=== PATIENT | female | born 1940 | race Caucasian/White ===

== ENCOUNTER 2018-04-25 17:20 | Inpatient (IN) | payer OTHER, MEDICAID ==
[~2018-04-25] VITALS: Ht 160 cm; Wt 77.6 kg
[2018-04-25] MEDS ORDERED: LISI-607 PO (17:48)
[2018-04-25] MEDS ORDERED: IPRA0.2S48 IH (17:48)
[2018-04-25] MEDS ORDERED: HYDR-3326 PO (17:48)
[2018-04-25] MEDS ORDERED: METO10TA3 PO (17:48)
[2018-04-25] MEDS ORDERED: FLUT1BLS IH (17:48)
[2018-04-25] MEDS ORDERED: ALBU8.5H8 INH (17:48)
[2018-04-25] MEDS ORDERED: METO-358 PO (17:48)
[2018-04-25] MEDS ORDERED: EZET10TA27 PO (17:48)
[2018-04-25] MEDS ORDERED: FURO-151 PO (17:48)
[2018-04-25] MEDS ORDERED: PANT40TA4 PO (17:48)
[2018-04-25] MEDS ORDERED: APIX5TAB PO (17:48)
[2018-04-25] MEDS ORDERED: POTA20LI4 PO (17:48)
[2018-04-25] MEDS ORDERED: POLY250017 TOP (17:48)
[2018-04-25] MEDS ORDERED: CLOP75TA33 PO (17:48)
[2018-04-25] MEDS ORDERED: TIOT18CA3 IH (17:48)
[2018-04-25] MEDS ORDERED: DICL100G26 TOP (17:48)
--- NOTE | 2018-04-25 17:48 | NUR ---
PT IS IN ROOM #1A. DR MENDES EVALUATED THE PT.
[2018-04-25] MEDS ORDERED: IPRATROPIUM BROMIDE 0.5 MG/2.5 ML NEBU IH SCH (18:45)
[2018-04-25] MEDS ORDERED: HYDROCODONE/APAP 5-325MG TABLET PO PRN (18:45)
[2018-04-25] MEDS ORDERED: ALBUTEROL SULFATE 8 GM HFA.AER.AD INH SCH (18:45)
[2018-04-25] MEDS ORDERED: LORAZEPAM 0.5 MG TABLET PO ONE (18:45)
[2018-04-25] MEDS ORDERED: LORAZEPAM 0.5 MG TABLET ONE (18:50)
--- NOTE | 2018-04-25 18:55 | NUR ---
REPORT GIVEN TO LIVESTOCK NUTRITIONISTPSYCHOLOGY TEACHER.
[2018-04-25] MEDS ORDERED: ONDANSETRON 4 MG/2 ML VIAL IV PRN (19:00)
[2018-04-25] MEDS ORDERED: ACETAMINOPHEN 325 MG TABLET PO PRN (19:00)
[2018-04-25] MEDS ORDERED: MISCELLANEOUS MED XX ONE (19:00)
[2018-04-25] MEDS ORDERED: Z GUARD REMEDY PASTE 57 GM TUBE TOP PRN (19:00)
[2018-04-25] MEDS ORDERED: MAGNESIUM HYDROXIDE 30 ML LIQUID UDC PO PRN (19:00)
--- NOTE | 2018-04-25 19:15 | NUR ---
REPORT RECEIVED FROM [facility] NURS[facility]
[2018-04-25] MEDS ORDERED: ALBUTEROL SULFATE 2.5 MG/3 ML NEBU NEB ONE (19:45)
[2018-04-25] MEDS ORDERED: IPRATROPIUM BROMIDE 0.5 MG/2.5 ML NEBU NEB ONE (19:45)
--- NOTE | 2018-04-25 19:46 | NUR ---
RT AT BEDSIDE FOR BREATHING TX
[2018-04-25] MEDS ORDERED: IPRATROPIUM BROMIDE 0.5 MG/2.5 ML NEBU ONE (19:50)
[2018-04-25] MEDS ORDERED: ALBUTEROL SULFATE 2.5 MG/3 ML NEBU ONE (19:50)
--- NOTE | 2018-04-25 20:40 | NUR ---
PT EXPERIENCES NEW ONSET OF CHEST PAIN. MADE AWARE.
[2018-04-25] MEDS ORDERED: NITROGLYCERIN 0.4 MG/TAB BOTTLE SL ONE ×3 (20:48→22:00)
[2018-04-25] MEDS ORDERED: DICLOFENAC SODIUM TOP SCH (21:00)
[2018-04-25] MEDS ORDERED: ONDANSETRON ODT 4 MG TAB.RAPDIS ONE (21:10)
[2018-04-25] MEDS ORDERED: MORPHINE SULFATE 2 MG/1 ML DISP.SYRIN ONE (21:11)
[2018-04-25 21:13] LABS: BASOPHILS % (AUTO) 0.6 % (0.0-2.0); EOSINOPHILS # (AUTO) 0.3 K/uL (0.0-0.7); EOSINOPHILS % (AUTO) 3.3 % (0.0-7.0); HEMATOCRIT 35.2 % (31.2-41.9); HEMOGLOBIN 11.6 g/dL (10.9-14.3); LYMPHOCYTES # (AUTO) 2.8 K/uL (20.0-40.0); MEAN CORPUSCULAR HGB CONC 33 g/dL (32.3-35.6); MEAN CORPUSCULAR VOLUME 90.7 fL (75.5-95.3); MONOCYTES # (AUTO) 0.8 K/uL (2.0-10.0); MONOCYTES % (AUTO) 10.3 % (0.0-11.0); NEUTROPHILS % (AUTO) 50.8 % (38.5-71.5); PLATELET COUNT (AUTO) 247 K/uL (179-408); RED BLOOD CELL COUNT(AUTO) 3.88 MIL/uL (3.63-4.92); WHITE BLOOD COUNT (AUTO) 7.9 K/uL (3.8-11.8)
[2018-04-25] MEDS ORDERED: MORPHINE SULFATE 2 MG/1 ML DISP.SYRIN IV ONE ×2 (21:15→21:45)
[2018-04-25] MEDS ORDERED: ONDANSETRON 4 MG/2 ML VIAL IV ONE (21:15)
[2018-04-25 21:21] LABS: CARBON DIOXIDE 29 mmol/L (21-32); CHLORIDE 99 mmol/L (98-107); CREATININE 1.2 mg/dL (0.6-1.3); GLUCOSE 142 mg/dL (74-106); UREA NITROGEN, BLOOD 20 mg/dL (7-18)
[2018-04-25 21:34] LABS: ALANINE AMINOTRANSFERASE 20 U/L (14-59); ALKALINE PHOSPHATASE 51 U/L (50-136); ASPARTATE AMINOTRANSFERASE 13 U/L (15-37); BILIRUBIN,TOTAL 0.7 mg/dL (0.2-1.0); TOTAL PROTEIN, SERUM 6.2 g/dL (6.4-8.2)
--- NOTE | 2018-04-25 21:55 | NUR ---
REPORT GIVEN TO TELEMETRY NURSE, ALESSANDRO
[2018-04-25] MEDS ORDERED: MORPHINE SULFATE 2 MG/1 ML DISP.SYRIN IV PRN (22:00)
[2018-04-25] MEDS ORDERED: ALBUTEROL SULFATE 2.5 MG/3 ML NEBU NEB PRN (22:15)
[2018-04-25] MEDS ORDERED: IPRATROPIUM BROMIDE 0.5 MG/2.5 ML NEBU NEB PRN (22:15)
[2018-04-25] MEDS ORDERED: CLONIDINE HCL 0.1 MG TABLET PO PRN (22:15)
--- NOTE | 2018-04-25 22:50 | NUR ---
Pt. admitted to TELEMETRY, under care of BELIA WHELAN Belongs List completed
[2018-04-26] VITALS: BP 107/57
--- NOTE | 2018-04-26 | NUR ---
PER NIGHT PHARMACY TO VERIFY PATIENTS ELIQUIS IF SHE TOOK THEM TODAY AND IF SHE HAVE THEM WITH HER PER PATIENT SHE TOOK ELIQUIS THIS AM AND SHE DONT HAVE MEDICATION WITH HER .PATIENT IS PSYCH ON HOLD 4770. SPOKED WITH BELIA GUEVARA AND PER CEMENT PRODUCTION PLANT OPERATOR TO VERIFY WITH IN HOUSE PHARMACY THIS AM FOR POSSIBLE SUBSTITUTION
[2018-04-26 04:00] VITALS: BP 144/73
--- NOTE | 2018-04-26 04:30 | NUR ---
MONITOR SHOWS PVC BIGEMINY PTS SLEEPING AND ASYMPTOMATIC
--- NOTE | 2018-04-26 04:35 | NUR ---
PTS SLEEPING IN BED NO CP VERBALIZE SR IN MONITOR WITH OCCASIONAL PVC
[2018-04-26 05:26] LABS: BASOPHILS % (AUTO) 0.8 % (0.0-2.0); EOSINOPHILS # (AUTO) 0.3 K/uL (0.0-0.7); EOSINOPHILS % (AUTO) 5.5 % (0.0-7.0); HEMATOCRIT 34.6 % (31.2-41.9); HEMOGLOBIN 11.8 g/dL (10.9-14.3); LYMPHOCYTES # (AUTO) 1.8 K/uL (20.0-40.0); LYMPHOCYTES % (AUTO) 28.9 % (20.5-51.5); MEAN CORPUSCULAR HEMOGLOBIN 30.7 uug (24.7-32.8); MEAN CORPUSCULAR HGB CONC 34 g/dL (32.3-35.6); MEAN CORPUSCULAR VOLUME 90.2 fL (75.5-95.3); MONOCYTES # (AUTO) 0.7 K/uL (2.0-10.0); MONOCYTES % (AUTO) 11.9 % (0.0-11.0); NEUTROPHILS # (AUTO) 3.2 K/uL (1.8-8.9); NEUTROPHILS % (AUTO) 52.9 % (38.5-71.5); PLATELET COUNT (AUTO) 241 K/uL (179-408); RED BLOOD CELL COUNT(AUTO) 3.83 MIL/uL (3.63-4.92); WHITE BLOOD COUNT (AUTO) 6.1 K/uL (3.8-11.8)
[2018-04-26 05:38] LABS: CARBON DIOXIDE 31 mmol/L (21-32); CHLORIDE 102 mmol/L (98-107); GLUCOSE 100 mg/dL (74-106); POTASSIUM 3.7 mmol/L (3.5-5.1); UREA NITROGEN, BLOOD 16 mg/dL (7-18)
[2018-04-26 05:55] LABS: THYROID STIMULATING HORMONE 0.951 mIU/mL (0.358-3.740)
[2018-04-26 06:44] LABS: CHOLESTEROL 151 mg/dL (<200); HDL CHOLESTEROL 54 mg/dL (40-60); MAGNESIUM 1.9 mg/dL (1.8-2.4); TRIGLYCERIDES 102 MG/DL (30-150)
--- NOTE | 2018-04-26 07:00 | NUR ---
RECEIVED PATIENT ON BED ASLEEP. ON TELE SR WITH OCCASIONAL PVCS. ON O2 @ 2LPM VIA NC, NO COMPLAINTS OF SOB AT THIS TIME. ON 72HR HOLD UP ON 04/29/2018. NO SI NOTED AT THIS TIME. PATIENT SEEMS DEPRESSED. BUT COOPERATIVE AND COMPLIANT WITH MEDS. 1:1 SITTER AT BEDSIDE FOP SAFETY.
[2018-04-26] MEDS ORDERED: [UNRECOGNIZED DRUG - OTHER] TOP SCH (09:00)
[2018-04-26] MEDS ORDERED: CLOPIDOGREL 75 MG TABLET PO SCH (09:00)
[2018-04-26] MEDS ORDERED: APIXABAN 5 MG TABLET PO SCH (09:00)
[2018-04-26] MEDS ORDERED: METOPROLOL SUCCINATE XL 50 MG TAB.SR.24H PO SCH (09:00)
[2018-04-26] MEDS ORDERED: METOCLOPRAMIDE HCL 10 MG TABLET PO SCH (09:00)
[2018-04-26] MEDS ORDERED: FLUTICASONE/VILANTEROL 1 EACH BLST.W.DEV IH SCH (09:00)
[2018-04-26] MEDS ORDERED: FUROSEMIDE 40 MG TABLET PO SCH (09:00)
[2018-04-26] MEDS ORDERED: EZETIMIBE 10 MG TABLET PO SCH (09:00)
[2018-04-26] MEDS ORDERED: LISINOPRIL 5 MG TABLET PO SCH (09:00)
[2018-04-26] MEDS ORDERED: POTASSIUM CHLORIDE PO SCH (09:00)
[2018-04-26] MEDS ORDERED: PANTOPRAZOLE SODIUM 40 MG TABLET.DR PO SCH (09:00)
[2018-04-26] MEDS ORDERED: POTASSIUM CHLORIDE 20 MEQ POWDER PACKET PO SCH (09:55)
[2018-04-26] MEDS ORDERED: MIRALAX 17 GM POWD.PACK PO PRN (10:15)
[2018-04-26 11:00] VITALS: BP 125/46
[2018-04-26] MEDS ORDERED: LORAZEPAM 1 MG TABLET PO PRN (11:15)
[2018-04-26 16:00] VITALS: BP 105/54
--- NOTE | 2018-04-26 18:50 | NUR ---
PATIENT DISCHARGED IN STABLE CONDITION BELONGINGS LIST COMPLETED AND SIGNED BY PATIENT REPORT GIVEN PRIOR TO SUMIT ALFONSO. TRANSFERRED TO MHU VIA WHEELCHAIR WITH SOCO
[2018-04-27] MEDS ORDERED: METOPROLOL SUCCINATE XL 100 MG TAB.SR.24H PO SCH (09:00)
== END 2018-04-26 18:50 | DRG 206 ==
LOC: ER 17:24 → TELE 22:34
PROVIDERS: ADMIT Nurse Practitioner Acute Care; ATTEND Nurse Practitioner Acute Care
DX: M94.0 Chondrocostal junction syndrome [Tietze] (principal); I42.9 Cardiomyopathy, unspecified; F32.3 Major depressive disorder, single episode, severe with psychotic features; J44.9 Chronic obstructive pulmonary disease, unspecified; Z79.01 Long term (current) use of anticoagulants; Z79.899 Other long term (current) drug therapy; Z86.73 Personal history of transient ischemic attack (TIA), and cerebral infarction without residual deficits; Z90.710 Acquired absence of both cervix and uterus; I49.3 Ventricular premature depolarization; I48.0 Paroxysmal atrial fibrillation; H40.9 Unspecified glaucoma; I50.9 Heart failure, unspecified
CPT/HCPCS: 36415; 70030-TC; 71045; 83735; 84100; 84443; 85025; 93005; 93307; J2270; J3590; J8597; Q0162

== ENCOUNTER 2018-04-26 19:50 | Inpatient (IN) | payer MEDICAID, OTHER ==
[~2018-04-26] VITALS: Ht 162.6 cm; Wt 74.4 kg
[~2018-04-26 19:50] MED LIST: ALBU8.5H8 INH; APIX5TAB PO; CLOP75TA33 PO; DICL100G26 TOP; EZET10TA27 PO; FLUT1BLS IH; FURO-151 PO; HYDR-3326 PO; IPRA0.2S48 IH; LISI-607 PO; METO-358 PO; METO10TA3 PO; PANT40TA4 PO; POLY250017 TOP; POTA20LI4 PO; TIOT18CA3 IH
[2018-04-26 20:00] VITALS: BP 107/49
[2018-04-26] MEDS ORDERED: MAG HYDROX/AL HYDROX/SIMETH 30 ML LIQUID UDC PO PRN (21:00)
[2018-04-26] MEDS ORDERED: ACETAMINOPHEN 325 MG TABLET PO PRN (21:00)
--- NOTE | 2018-04-26 21:00 | NUR ---
GPS: Admitted to unit earlier from med.surg unit this 77 yr.old female under the care of in stable condition. Pt.is on a 72 hour hold for DTS. Pt.had 2 failed suicide attempts in the last 3 days by OD and has been depressed and was planning to cut wrists in her bath tub. Pt.is alert oriented x3. Contracts for safety at this time. Anxious,but cooperative during admission process. Personal belongings/body assessment completed. Safety emphasized.Will continue to monitor behavior.Both assigned doctors aware of pt's arrival to the unit.
[2018-04-26 21:03] VITALS: BP 107/49
[2018-04-26] MEDS: LORAZEPAM 1 MG TABLET PO PRN (21:16)
[2018-04-26] MEDS ORDERED: IPRATROPIUM BROMIDE 0.5 MG/2.5 ML NEBU IH PRN (21:30)
[2018-04-26] MEDS ORDERED: ALBUTEROL SULFATE 8 GM HFA.AER.AD INH PRN (21:30)
[2018-04-26] MEDS: ZOLPIDEM 5 MG TABLET PO PRN (22:20)
[2018-04-27 07:30] VITALS: BP 127/63
[2018-04-27] MEDS ORDERED: ALBUTEROL SULFATE 2.5 MG/3 ML NEBU NEB PRN (07:45)
[2018-04-27] MEDS: EZETIMIBE 10 MG TABLET PO SCH (08:30)
[2018-04-27] MEDS: FUROSEMIDE 40 MG TABLET PO SCH (08:30)
[2018-04-27] MEDS: LISINOPRIL 5 MG TABLET PO SCH (08:30)
[2018-04-27] MEDS: CLOPIDOGREL 75 MG TABLET PO SCH (08:30)
[2018-04-27] MEDS: PANTOPRAZOLE SODIUM 40 MG TABLET.DR PO SCH (08:30)
[2018-04-27] MEDS: APIXABAN 5 MG TABLET PO SCH ×2 (09:53→17:09)
[2018-04-27] MEDS: FLUTICASONE/VILANTEROL 1 EACH BLST.W.DEV IH SCH (09:53)
[2018-04-27] MEDS: METOPROLOL SUCCINATE XL 100 MG TAB.SR.24H PO SCH (09:53)
[2018-04-27] MEDS: VENLAFAXINE XR 37.5 MG CAP.SR.24H PO SCH (12:07)
[2018-04-27] MEDS: MAGNESIUM HYDROXIDE 30 ML LIQUID UDC PO PRN (13:05)
[2018-04-27] MEDS: LORAZEPAM 1 MG TABLET PO PRN (13:43)
[2018-04-27 16:38] VITALS: BP 102/55
[2018-04-27 19:30] VITALS: BP 105/57
[2018-04-27] MEDS: ZOLPIDEM 5 MG TABLET PO PRN (22:39)
[2018-04-28 06:59] LABS: BASOPHILS # (AUTO) 0.1 K/uL (0.0-8.0); BASOPHILS % (AUTO) 0.9 % (0.0-2.0); EOSINOPHILS # (AUTO) 0.2 K/uL (0.0-0.7); EOSINOPHILS % (AUTO) 3.5 % (0.0-7.0); HEMATOCRIT 36.9 % (31.2-41.9); HEMOGLOBIN 12.6 g/dL (10.9-14.3); LYMPHOCYTES # (AUTO) 2.1 K/uL (20.0-40.0); LYMPHOCYTES % (AUTO) 35.8 % (20.5-51.5); MEAN CORPUSCULAR HEMOGLOBIN 31.1 uug (24.7-32.8); MEAN CORPUSCULAR HGB CONC 34 g/dL (32.3-35.6); MEAN CORPUSCULAR VOLUME 91.3 fL (75.5-95.3); MONOCYTES # (AUTO) 0.5 K/uL (2.0-10.0); MONOCYTES % (AUTO) 8.3 % (0.0-11.0); NEUTROPHILS % (AUTO) 51.5 % (38.5-71.5); PLATELET COUNT (AUTO) 252 K/uL (179-408); RED BLOOD CELL COUNT(AUTO) 4.04 MIL/uL (3.63-4.92); WHITE BLOOD COUNT (AUTO) 5.9 K/uL (3.8-11.8)
[2018-04-28 07:16] LABS: CARBON DIOXIDE 30 mmol/L (21-32); CHLORIDE 102 mmol/L (98-107); CREATININE 1.1 mg/dL (0.6-1.3); GLUCOSE 109 mg/dL (74-106); POTASSIUM 3.7 mmol/L (3.5-5.1); UREA NITROGEN, BLOOD 15 mg/dL (7-18)
[2018-04-28 07:30] VITALS: BP 132/71
[2018-04-28 08:58] LABS: THYROID STIMULATING HORMONE 0.541 mIU/mL (0.358-3.740)
[2018-04-28] MEDS: PANTOPRAZOLE SODIUM 40 MG TABLET.DR PO SCH (09:40)
[2018-04-28] MEDS: VENLAFAXINE XR 37.5 MG CAP.SR.24H PO SCH (09:40)
[2018-04-28] MEDS: CLOPIDOGREL 75 MG TABLET PO SCH (09:40)
[2018-04-28] MEDS: EZETIMIBE 10 MG TABLET PO SCH (09:40)
[2018-04-28] MEDS: METOPROLOL SUCCINATE XL 100 MG TAB.SR.24H PO SCH (09:41)
[2018-04-28] MEDS: APIXABAN 5 MG TABLET PO SCH ×2 (09:41→17:05)
[2018-04-28] MEDS: LISINOPRIL 5 MG TABLET PO SCH (09:41)
[2018-04-28] MEDS: FLUTICASONE/VILANTEROL 1 EACH BLST.W.DEV IH SCH (09:41)
[2018-04-28] MEDS: FUROSEMIDE 40 MG TABLET PO SCH (09:41)
[2018-04-28 13:00] VITALS: BP 123/72
[2018-04-28] MEDS: LORAZEPAM 1 MG TABLET PO PRN (14:18)
--- NOTE | 2018-04-28 14:47 | NUR ---
Initial Discharge Instructions: Patient currently lives at home alone [[address] [place] [address]; [phone]]. Per pt, she would like to return there upon discharge. Per pt, she is connected to In-Home Supportive Services and is assigned a high school social studies tutor. SW will also speak with pt's friend, Tanya ([phone]). NÉSTOR will continue to collaborate with the patient, support system, and MD regarding most appropriate discharge plans. SW will form a safe and proper discharge plan.
--- NOTE | 2018-04-28 15:45 | NUR ---
Firearms Report: Dump Worker completed and submitted [employer] Firearms Report on 04/28/18 for 5150 Danger to Self certification.
--- NOTE | 2018-04-28 15:54 | NUR ---
UR Note: Ultrasonic Solderer faxed clinicals to [facility] IPA Cracking And Fanning Machine Operator, Julia (fax [phone]; [phone]). Awaiting authorization. SW will continue to follow-up.
[2018-04-28 19:30] VITALS: BP 136/52
[2018-04-28] MEDS: ZOLPIDEM 5 MG TABLET PO PRN (23:20)
[2018-04-29 07:30] VITALS: BP 119/67
[2018-04-29] MEDS: METOPROLOL SUCCINATE XL 100 MG TAB.SR.24H PO SCH (08:30)
[2018-04-29] MEDS: FLUTICASONE/VILANTEROL 1 EACH BLST.W.DEV IH SCH (08:30)
[2018-04-29] MEDS: EZETIMIBE 10 MG TABLET PO SCH (08:30)
[2018-04-29] MEDS: FUROSEMIDE 40 MG TABLET PO SCH (08:30)
[2018-04-29] MEDS: PANTOPRAZOLE SODIUM 40 MG TABLET.DR PO SCH (08:30)
[2018-04-29] MEDS: CLOPIDOGREL 75 MG TABLET PO SCH (08:30)
[2018-04-29] MEDS: APIXABAN 5 MG TABLET PO SCH ×2 (08:30→17:16)
[2018-04-29] MEDS: VENLAFAXINE XR 37.5 MG CAP.SR.24H PO SCH (08:31)
[2018-04-29] MEDS: LISINOPRIL 5 MG TABLET PO SCH (08:31)
[2018-04-29] MEDS: MAGNESIUM HYDROXIDE 30 ML LIQUID UDC PO PRN (11:11)
[2018-04-29 15:42] VITALS: BP 113/59
--- NOTE | 2018-04-29 16:18 | NUR ---
UR Note: NÉSTOR faxed updated clinicals to [facility] IPA Machine Feeder Raw Stock, Julia ([phone]; fax [phone]). Pending Authorization#[id number]. NÉSTOR will continue to follow-up.
[2018-04-29] MEDS: LORAZEPAM 1 MG TABLET PO PRN (17:16)
[2018-04-29 19:54] VITALS: BP 116/60
[2018-04-29] MEDS: ZOLPIDEM 5 MG TABLET PO PRN (21:58)
[2018-04-30 07:30] VITALS: BP 127/57
[2018-04-30] MEDS: VENLAFAXINE XR 37.5 MG CAP.SR.24H PO SCH (08:12)
[2018-04-30] MEDS: PANTOPRAZOLE SODIUM 40 MG TABLET.DR PO SCH (08:12)
[2018-04-30] MEDS: CLOPIDOGREL 75 MG TABLET PO SCH (08:12)
[2018-04-30] MEDS: FUROSEMIDE 40 MG TABLET PO SCH (08:12)
[2018-04-30] MEDS: EZETIMIBE 10 MG TABLET PO SCH (08:12)
[2018-04-30] MEDS: LISINOPRIL 5 MG TABLET PO SCH (08:15)
[2018-04-30] MEDS: METOPROLOL SUCCINATE XL 100 MG TAB.SR.24H PO SCH (08:16)
[2018-04-30] MEDS: FLUTICASONE/VILANTEROL 1 EACH BLST.W.DEV IH SCH (08:16)
[2018-04-30] MEDS: APIXABAN 5 MG TABLET PO SCH ×2 (08:16→16:36)
[2018-04-30] MEDS ORDERED: VENLAFAXINE XR 37.5 MG CAP.SR.24H PO SCH (09:00)
[2018-04-30] MEDS ORDERED: VENLAFAXINE XR 37.5 MG CAP.SR.24H PO ONE (09:30)
[2018-04-30] MEDS: HYDROCODONE/APAP 5-325MG TABLET PO PRN ×2 (11:08→18:42)
[2018-04-30 13:54] LABS: BASOPHILS # (AUTO) 0.1 K/uL (0.0-8.0); BASOPHILS % (AUTO) 0.7 % (0.0-2.0); EOSINOPHILS # (AUTO) 0.1 K/uL (0.0-0.7); EOSINOPHILS % (AUTO) 0.8 % (0.0-7.0); HEMATOCRIT 40.4 % (31.2-41.9); HEMOGLOBIN 13.4 g/dL (10.9-14.3); LYMPHOCYTES # (AUTO) 2.6 K/uL (20.0-40.0); LYMPHOCYTES % (AUTO) 21.2 % (20.5-51.5); MEAN CORPUSCULAR HGB CONC 33 g/dL (32.3-35.6); MEAN CORPUSCULAR VOLUME 90.4 fL (75.5-95.3); MONOCYTES # (AUTO) 0.8 K/uL (2.0-10.0); MONOCYTES % (AUTO) 6.8 % (0.0-11.0); NEUTROPHILS # (AUTO) 8.6 K/uL (1.8-8.9); NEUTROPHILS % (AUTO) 70.5 % (38.5-71.5); PLATELET COUNT (AUTO) 318 K/uL (179-408); RED BLOOD CELL COUNT(AUTO) 4.47 MIL/uL (3.63-4.92); WHITE BLOOD COUNT (AUTO) 12.2 K/uL (3.8-11.8)
[2018-04-30 14:03] LABS: CARBON DIOXIDE 29 mmol/L (21-32); CHLORIDE 100 mmol/L (98-107); CREATININE 1.3 mg/dL (0.6-1.3); GLUCOSE 141 mg/dL (74-106); POTASSIUM 3.9 mmol/L (3.5-5.1); UREA NITROGEN, BLOOD 13 mg/dL (7-18)
--- NOTE | 2018-04-30 14:42 | NUR ---
Patient is alert and oriented x3. noted lying in bed all the time despite of encouragement to participate activities. Complaint of pain/discomfort on left abdomen, shoulder, and chest scale of 7 out of 10. BEAUTY OPERATOR aileen aware. Jay PRN given. ordered EKG and blood works. not in distress. will continue monitor
--- NOTE | 2018-04-30 14:50 | NUR ---
Patient for collection of urine. WBC 12.2. AQUATIC CENTRE MANAGER aware.
--- NOTE | 2018-04-30 15:09 | NUR ---
UR Note: NÉSTOR faxed updated clinicals to [facility] IPA Paving And Surfacing Labourer, Julia ([phone]; fax [phone]). Pending Authorization#[id number]. NÉSTOR will continue to follow-up.
[2018-04-30 15:30] VITALS: BP 105/50
[2018-04-30] MEDS: LORAZEPAM 1 MG TABLET PO PRN (16:36)
[2018-04-30 17:17] LABS: *BILIRUBIN,URIN NEGATIVE (NEGATIVE); *BLOOD, URINE 2+ (NEGATIVE); *CLARITY,URINE CLOUDY (CLEAR); *COLOR,URINE YELLOW (YELLOW); *KETONES,URINE NEGATIVE (NEGATIVE); *PROTEIN,URINE 1+ (NEGATIVE); *UROBILINOGEN,URINE 0.2 E.U./dl (NORMAL); LEUKOCYTE ESTERASE ,URINE 3+ (NEGATIVE); NITRITE, URINE POSITIVE (NEGATIVE); UGLUCOSE NEGATIVE (NEGATIVE)
[2018-04-30 17:42] LABS: BACTERIA,URINE MODERATE /HPF (NONE SEEN); SQUAMOUS EPITHELIAL CELL,UR FEW /HPF (NONE SEEN); WBC,URINE TNTC /HPF (0-3)
--- NOTE | 2018-04-30 17:54 | NUR ---
GPS/RN- Paged Sukh Alfaro.P. honey liquefier for patient notified of UA results for patient, Orders received for Keflex 500mg by mouth BID for 7 days, orders repeated back.
[2018-04-30] MEDS: CEPHALEXIN MONOHYDRATE 500 MG CAPSULE PO SCH (18:00)
[2018-04-30 19:30] VITALS: BP 102/48
--- NOTE | 2018-04-30 20:58 | NUR ---
RECEIVED PATIENT IN THE DAY ROOM, SHE IS NOTED A/O X 3. ABLE TO AMBULATE WITH STEADY GAIT AND ABLE TO MAKE HER NEEDS KNOWN. SHE IS NOTED WITH LOW MOOD. SHE IS ABLE TO VERBALIZED FEELINGS. SHE DENIES SI OR ANY THOUGHT TO HARM SELF, SHE IS ABLE TO CFS. SAFETY WAS EMPHASIS. BED AT LOWEST POSITION WITH WHEELS LOCKED AND FREQUENT HEAD CHECKS. WILL CONTINUE TO MONITOR.
[2018-04-30] MEDS: ZOLPIDEM 5 MG TABLET PO PRN (22:15)
[2018-05-01 07:30] VITALS: BP 150/63
[2018-05-01] MEDS: FLUTICASONE/VILANTEROL 1 EACH BLST.W.DEV IH SCH (09:28)
[2018-05-01] MEDS: LISINOPRIL 5 MG TABLET PO SCH (09:29)
[2018-05-01] MEDS: VENLAFAXINE XR 75 MG CAP.SR.24H PO SCH (09:29)
[2018-05-01] MEDS: CLOPIDOGREL 75 MG TABLET PO SCH (09:29)
[2018-05-01] MEDS: PANTOPRAZOLE SODIUM 40 MG TABLET.DR PO SCH (09:29)
[2018-05-01] MEDS: APIXABAN 5 MG TABLET PO SCH ×2 (09:29→16:52)
[2018-05-01] MEDS: CEPHALEXIN MONOHYDRATE 500 MG CAPSULE PO SCH ×2 (09:29→16:52)
[2018-05-01] MEDS: EZETIMIBE 10 MG TABLET PO SCH (09:29)
[2018-05-01] MEDS: METOPROLOL SUCCINATE XL 100 MG TAB.SR.24H PO SCH (09:30)
[2018-05-01] MEDS: FUROSEMIDE 40 MG TABLET PO SCH (09:30)
[2018-05-01] MEDS: HYDROCODONE/APAP 5-325MG TABLET PO PRN ×2 (12:19→21:02)
--- NOTE | 2018-05-01 15:19 | NUR ---
Gps/Manufacturing Management Associate- Verbalized feelings of being anxious, ativan 1 mg was given as requested, verbalized relief from anxiety. Attending her group therapy. Denies S.I. discharge planning in progress, plan was for tomorrow.
[2018-05-01 20:00] VITALS: BP 149/68
--- NOTE | 2018-05-01 21:10 | NUR ---
Patient received while was in dinning room watching TV. AAO x3. Able to make her needs known. No acute distress or SOB was noted. Has low mood, able to express her feeling verbally. No thoughts of hurting herself or anybody else. Pain assessed, complained of pain at left side of abdomen and left shoulder. rated her pain 8 out of 10 on numeric scale, pain medication was given. Safety measures were maintained. Bed is on the low position and locked. Continue to monitor.
[2018-05-01] MEDS: ZOLPIDEM 5 MG TABLET PO PRN (22:18)
[2018-05-02 07:30] VITALS: BP 130/64
[2018-05-02] MEDS: FLUTICASONE/VILANTEROL 1 EACH BLST.W.DEV IH SCH (08:18)
[2018-05-02] MEDS: CEPHALEXIN MONOHYDRATE 500 MG CAPSULE PO SCH (08:18)
[2018-05-02] MEDS: EZETIMIBE 10 MG TABLET PO SCH (08:19)
[2018-05-02 08:20] VITALS: BP 130/64
[2018-05-02] MEDS: LISINOPRIL 5 MG TABLET PO SCH (08:20)
[2018-05-02] MEDS: METOPROLOL SUCCINATE XL 100 MG TAB.SR.24H PO SCH (08:20)
[2018-05-02] MEDS: FUROSEMIDE 40 MG TABLET PO SCH (08:20)
[2018-05-02] MEDS: PANTOPRAZOLE SODIUM 40 MG TABLET.DR PO SCH (08:20)
[2018-05-02] MEDS: CLOPIDOGREL 75 MG TABLET PO SCH (08:20)
[2018-05-02] MEDS: VENLAFAXINE XR 75 MG CAP.SR.24H PO SCH (08:20)
[2018-05-02] MEDS: APIXABAN 5 MG TABLET PO SCH (08:21)
--- NOTE | 2018-05-02 08:35 | NUR ---
Discharge Note: Patient will be discharged home with her friend/DPOA, Tanya Bowens [[address], [place] [address]; [phone]] via private transportation at 11am. Spoke with patients friend, Tanya ([phone]) who has agreed to provide transportation and is aware and agreeable with discharge plans. Patient will live with her friend for a few days before returning home. Patient is aware and agreeable with discharge plans. Patient denies SI/HI and is alert and oriented x4. Patient will continue to follow-up with her Primary Care Physician, Dr. Crystal Caldera [[address], [place] [address]; ]. Patient was also referred to an outpatient Psychiatry appointment with Dr. Emeterio Whiteside [[address] [facility], [facility] [address]; [phone]] on May 09, 2018 @3:15pm. Patient was provided with a brief substance abuse intervention and referred to [facility] , [facility] , and [facility] National Helpline ([phone]). Patient was also provided with outpatient mental health resources to [facility] Crisis Line , Rosalinda Levine , and the National Suicide Prevention Lifeline .
--- NOTE | 2018-05-02 11:30 | NUR ---
Gps/Custom Leather Products Maker- Patient's friend Tanya in to diamond picker patient, reviewed medications/prescriptions, diet, safety , emphasized follow up with her primary Care Physician, verbalized understanding. All belongings given back to patient. Patient in good spirit, adequate support from her friends, no complaints noted.
--- NOTE | 2018-05-02 12:24 | NUR ---
UR Note: Faxed discharge clinicals to [facility] IPA Carrier Operator, Julia (f [phone]; ph [phone]). AUTH#[id number].
== END 2018-05-02 11:35 | disposition home or self-care (01) | DRG 885 ==
LOC: GPS 19:50
PROVIDERS: ADMIT Psychiatry & Neurology Psychiatry; ATTEND Nurse Practitioner Acute Care
DX: F32.2 Major depressive disorder, single episode, severe without psychotic features (principal); B95.2 Enterococcus as the cause of diseases classified elsewhere; I50.23 Acute on chronic systolic (congestive) heart failure; N39.0 Urinary tract infection, site not specified; T40.2X2D Poisoning by other opioids, intentional self-harm, subsequent encounter; T46.5X2D Poisoning by other antihypertensive drugs, intentional self-harm, subsequent encounter; Z86.711 Personal history of pulmonary embolism; J44.9 Chronic obstructive pulmonary disease, unspecified; I48.0 Paroxysmal atrial fibrillation; Z79.01 Long term (current) use of anticoagulants; Z79.899 Other long term (current) drug therapy; Z90.710 Acquired absence of both cervix and uterus; Z86.73 Personal history of transient ischemic attack (TIA), and cerebral infarction without residual deficits; H40.9 Unspecified glaucoma; M94.0 Chondrocostal junction syndrome [Tietze]
CPT/HCPCS: 36415; 70030-TC; 84443; 85025; 87077; 87086; 93005; J3535